=== PATIENT | female | born 1970 | race Hispanic/Latino ===

== ENCOUNTER 2017-11-26 | Emergency (ER) | payer SELFPAY ==
--- NOTE | 2017-11-26 09:41 | EDPHYS ---
Physician Documentation [facility] Name: Yogesh Funes Age: 47 yrs Sex: Female : 1970 Arrival Date: 11/26/2017 Time: 09:13 Bed 11 Private MD: ED Physician Ozzy Mota HPI: 11/26 09:35 This 47 yrs old Female presents to ER via Ambulatory with complaints of jr8 Redness of Eye. 09:35 The patient is experiencing redness. Onset: The symptoms/episode began/occurred jr8 acutely, yesterday. Duration: the symptoms are continuous. Aggravated by nothing. Alleviated by nothing. Associated signs and symptoms: Pertinent positives: None. Patient does not utilize any form of vision correction. Severity of symptoms: At their worst the symptoms were very mild in the emergency department the symptoms are unchanged. The patient has not experienced similar symptoms in the past. The patient has not recently seen a physician. Patient stated that she noticed redness into left eye. Was putting visine drops in eye to see if it would help. Denies itching, discharge, or pain to eye. Denies trauma to eye . Historical: - Allergies: 09:22 PENICILLINS; ss - Home Meds: 09:22 None [Active]; ss - PMHx: 09:22 None; ss - PSHx: 09:22 None; ss - Immunization history:: Adult Immunizations up to date. - Social history:: Smoking status: Patient/guardian denies using tobacco. ROS: 09:35 ENT: Negative for injury, pain, and discharge, Neck: Negative for injury, pain, and jr8 swelling, Cardiovascular: Negative for chest pain, palpitations, and edema, Respiratory: Negative for shortness of breath, cough, wheezing, and pleuritic chest pain, Abdomen/GI: Negative for abdominal pain, nausea, vomiting, diarrhea, and constipation, Back: Negative for injury and pain, MS/Extremity: Negative for injury and deformity, Skin: Negative for injury, rash, and discoloration, Neuro: Negative for headache, weakness, numbness, tingling, and seizure. 09:35 Eyes: Positive for redness, of the inner aspect of conjunctiva of left eye. Exam: 09:35 Visual Acuity: Visual acuity is within normal limits. jr8 09:35 Head/Face: Normocephalic, atraumatic. ENT: Nares patent. No nasal discharge, no septal abnormalities noted. Tympanic membranes are normal and external auditory canals are clear. Oropharynx with no redness, swelling, or masses, exudates, or evidence of obstruction, uvula midline. Mucous membranes moist. Neck: Trachea midline, no thyromegaly or masses palpated, and no cervical lymphadenopathy. Supple, full range of motion without nuchal rigidity, or vertebral point tenderness. No Meningismus. Cardiovascular: Regular rate and rhythm with a normal S1 and S2. No gallops, murmurs, or rubs. Normal PMI, no JVD. No pulse deficits. Respiratory: Lungs have equal breath sounds bilaterally, clear to auscultation and percussion. No rales, rhonchi or wheezes noted. No increased work of breathing, no retractions or nasal flaring. Skin: Warm, dry with normal turgor. Normal color with no rashes, no lesions, and no evidence of cellulitis. MS/ Extremity: Pulses equal, no cyanosis. Neurovascular intact. Full, normal range of motion. Neuro: Awake and alert, GCS 15, oriented to person, place, time, and situation. Cranial nerves II-XII grossly intact. Motor strength 5/5 in all extremities. Sensory grossly intact. Cerebellar exam normal. Normal gait. 09:35 Eyes: Periorbital structures: appear normal, Pupils: equal, round, and reactive to light and accomodation, Extraocular movements: intact throughout, Conjunctiva: subconjunctival hemorrhage(s), seen in the left eye, at 9 o'clock, Corneas: are normal, Sclera: no appreciated abnormality, Anterior chamber: normal, Lids and lashes: appear normal, Examination of the other eye reveals no obvious gross abnormality. Vital Signs: 09:22 BP 159 / 86; Pulse 85; Resp 16; Temp 98.2(TE); Pulse Ox 98% ; Weight 79.38 kg; Height 5 ss ft. 2 in. (157.48 cm); Pain 0/10; 09:22 Body Mass Index 32.01 (79.38 kg, 157.48 cm) ss MDM: 09:26 Patient medically screened. 8 09:35 Data reviewed: vital signs, nurses notes, and as a result, I will discharge patient. jr8 Data interpreted: Pulse oximetry: on room air is 98 %. Interpretation: normal. Counseling: I had a detailed discussion with the patient and/or guardian regarding: the historical points, exam findings, and any diagnostic results supporting the discharge/admit diagnosis, the need for outpatient follow up, an opthalmologist, to return to the emergency department if symptoms worsen or persist or if there are any questions or concerns that arise at home. Administered Medications: No medications were administered Disposition: 12:25 Co-signature as Attending Physician, Ozzy Mota MD I agree with the assessment and [facility] plan of care. Disposition: 11/26/17 09:41 Discharged to Home. Impression: Subconjunctival hemorrhage . - Condition is Stable. - Discharge Instructions: Subconjunctival Hemorrhage. - Medication Reconciliation Form, Thank You Letter, Antibiotic Education, Prescription Opioid Use form. - Follow up: Alphonso Bonilla MD; When: 2 - 3 days; Reason: Recheck today's complaints, Continuance of care, Re-evaluation by your physician. - Problem is new. - Symptoms are unchanged. Signatures: Ozzy Mota MD MD cha Smirch, Shelby RN RN Russ Porras PA PA jr8
--- NOTE | 2017-11-26 09:41 | ER ---
Nurse's Notes [facility] Name: Yogesh Funes Age: 47 yrs Sex: Female : 1970 Arrival Date: 11/26/2017 Time: 09:13 Bed 11 Private MD: Diagnosis: Subconjunctival hemorrhage Presentation: 11/26 09:21 Presenting complaint: Patient states: redness to L eye that began 2 days ago. Denies ss pain, itching or drainage. Transition of care: patient was not received from another setting of care. Onset of symptoms was November 24, 2017. Care prior to arrival: None. 09:21 Method Of Arrival: Ambulatory ss 09: Acuity: ADRIENNE 5 ss Historical: - Allergies: : PENICILLINS; ss - Home Meds: : None [Active]; ss - PMHx: : None; ss - PSHx: : None; ss - Immunization history:: Adult Immunizations up to date. - Social history:: Smoking status: Patient/guardian denies using tobacco. Screenin:30 Abuse screen: Denies threats or abuse. Denies injuries from another. Nutritional ss screening: No deficits noted. Tuberculosis screening: Never had TB. Fall Risk None identified. Assessment: : General: Appears in no apparent distress. comfortable, Behavior is calm, cooperative. ss Pain: Denies pain. Neuro: Level of Consciousness is awake, alert, obeys commands. Cardiovascular: Capillary refill < 3 seconds is brisk in bilateral fingers. Respiratory: Airway is patent Respiratory effort is even, unlabored, Respiratory pattern is regular, symmetrical. GI: Patient currently denies nausea. EENT: Sclera/Cornea are reddened in inner aspect of conjunctiva of left eye Nares are clear Oral mucosa is moist. Derm: Skin is intact, is healthy with good turgor, Skin is dry, Skin is pink, warm \T\ dry. normal. Musculoskeletal: Circulation, motion, and sensation intact. Range of motion: intact in all extremities, Swelling absent. Vital Signs: : BP 159 / 86; Pulse 85; Resp 16; Temp 98.2(TE); Pulse Ox 98% ; Weight 79.38 kg; Height 5 ss ft. 2 in. (157.48 cm); Pain 0/10; 09: Body Mass Index 32.01 (79.38 kg, 157.48 cm) ED Course: 09:13 Patient arrived in ED. as 09:21 Triage completed. ss 09:22 Arm band placed on right wrist. ss 09:26 Russ Austin PA is PHCP. jr8 09:26 Ozzy Mota MD is Attending Physician. jr8 09:30 Patient has correct armband on for positive identification. Bed in low position. ss 09:40 Alphonso Bonilla MD is Referral Physician. jr8 09:49 Nona Strong, RN is Primary Nurse. ss 09:51 No provider procedures requiring assistance completed. Patient did not have IV access ss during this emergency room visit. Administered Medications: No medications were administered Outcome: 09:41 Discharge ordered by . jr8 09:51 Discharged to home ambulatory. ss 09:51 Condition: good 09:51 Discharge instructions given to patient, Instructed on discharge instructions, follow up and referral plans. Demonstrated understanding of instructions, follow-up care. 09:52 Patient left the ED. ss Signatures: Pavithra Rasmussen as Nona Strong, RN RN Russ Austin PA PA jr8
== END 2017-11-26 09:52 | disposition home or self-care (01) ==
CPT/HCPCS: 99281